=== PATIENT | female | born 1950 | race Caucasian/White ===

== ENCOUNTER 2021-03-29 09:06 | Inpatient (IN) | payer MEDICARE, SELFPAY ==
[2021-03-29] VITALS (18 sets, daily range): BP systolic 116–157; BP diastolic 56–95; PULSE 68–97; RESP 16–29; TEMP 36.5–38; O2SAT 90–100; BMI 32.4
--- NOTE | ~2021-03-29 | CT_ITS ---
EXAMINATION: CT abdomen pelvis w con INDICATION: Right lower abdominal pain TECHNIQUE: Computed tomographic images of the abdomen and pelvis were obtained after the administrati on of 100 cc of Omnipaque 350 intravenous contrast. The dose-length product (DLP) was 864.64 mGy-cm. Automated exposure control and iterative reconstruction technique were employed. COMPARISON: None available FINDINGS: Minimal dependent atelectasis is present in the lung bases. The heart size is normal. There are changes of right mastectomy. A small sliding hiatal hernia is noted. The liver, spleen, pancreas , gallbladder, and adrenal glands are normal. There is a 10 mm cyst of the right kidney. The left kid raymon is normal. There is calcified atherosclerosis of the aorta and many of the other arteries. The di lated appendix measures up to 13 mm. There is edematous stranding of the periappendiceal fat. No ther e appears to be interruption of the appendiceal wall at the base of the appendix contiguous with a 2. 2 x 1.3 cm abscess.. Colonic diverticulosis is present without evidence of diverticulitis. No patholo gically enlarged abdominal or pelvic lymph nodes are identified. There is no free intraperitoneal gas or evidence of bowel obstruction. There is thickening of the endometrial complex. IMPRESSION: 1. Acute appendicitis with likely perforation and small periappendiceal abscess near the base. These findings were discussed with Dr. Katy De Santiago MD in the Emergency Department at 1153 hours on . 2. Thickening of the endometrial complex. Recommend follow-up with nonemergent ultrasound. Reviewed, dictated and finalized at location A. IMPRESSION: 1. Acute appendicitis with likely perforation and small periappendiceal abscess near the base. These findings were discussed with Dr. Katy De Santiago MD in the Emergency Department at 1153 hours on 03/29/2021. 2. Thickening of the endometrial complex. Recommend follow-up with nonemergent ultrasound.
[2021-03-29 09:52] LABS: Basophils Percent Auto 0.3 % (0.2-1.2); Eosinophils Percent Auto 0.2 % (0-4.4); Hematocrit 39.1 % (37.0-47.0); Hemoglobin 13.4 g/dL (12.0-15.0); Immature Granulocyte Absolute 0.06 K/mm3 (0.00-0.031); Immature Granulocyte Percent A 0.6 % (0-0.5); Lymphocytes Absolute Auto 0.42 K/mm3 (0.9-3.2); Lymphocytes Percent Auto 4.2 % (18.3-44.2); Mean Corpuscular HGB Conc 34.3 g/dl (32-36); Mean Corpuscular Hemoglobin 29.3 pg (26-34); Mean Corpuscular Volume 85.4 fl (80-100); Mean Platelet Volume 8.6 fl (7.4-10.4); Monocytes Absolute Auto 0.5 K/mm3 (0.1-0.6); Monocytes Percent Auto 5.4 % (2.6-8.5); Neutrophils Percent Auto 89.3 % (45.5-73.1); Platelet Count Result 281 k/mm3 (150-375); Red Blood Count 4.58 M/mm3 (4.2-5.4); Red Cell Distribution Width 15.2 % (11.5-14.5); White Blood Count 10.1 K/mm3 (4.5-10.0)
[2021-03-29 09:55] LABS: Add Urine Microscopic? YES; Appearance Urine Cloudy (Clear); Bacteria Urine 4+ /hpf; Bilirubin Urine Negative (Negative); Blood Urine 1+ (Negative); Color Urine Yellow (Yellow); Glucose Urine UA Negative (Negative); Ketones Urine Negative (Negative); Leukocyte Esterase Ur Negative LEU/UL (Negative); Mucus Urine Rare /lpf; Nitrate Urine Negative (Negative); Protein Urine Negative (Negative); Specific Grav Ur 1.015 (1.001-1.035); Squamous Epithelial Cell Urine Many /hpf (Few); Urobilinogen Urine Negative mg/dL (<2.0)
--- NOTE | 2021-03-29 10:18 | ED.ABDPAIN ---
HPI - Abdominal Pain General Chief Complaint: Abdominal Pain Stated Complaint: abd pain Time Seen by Provider: 03/29/21 09:27 Source: patient and RN notes reviewed Mode of arrival: ambulatory Limitations: no limitations History of Present Illness HPI narrative: This is a 70 year old female who presents for evaluation of right lower abdominal pain. She states she developed intermittent right lower abdominal pain on Wednesday. Her pain is present with movement. She denies nausea, vomiting or diarrhea. She does reports fever for 2 days. Today she had fever 101 F . She denies taking any medication for pain or fever today. She reports increased urinary frequency but she denies dysuria or hematuria. She also states her pain goes her pain occasionally . She denies having pain currently. Related Data Allergies Allergy/AdvReac Type Severity Reaction Status Date / Time lovastatin AdvReac Mild muscle Verified 03/29/21 09:24 aches Review of Systems Review of Systems: All systems reviewed & are unremarkable except as noted in HPI and below Constitutional: Constitutional: Reports chills and Reports fever(s) Gastrointestinal: Gastrointestinal: Reports abdominal pain, Denies diarrhea, Reports nausea and Denies vomiting Genitourinary: Genitourinary: Denies hematuria, Denies dysuria and Denies flank pain Musculoskeletal: Musculoskeletal: Reports back pain PMFSH Past Medical History Medical History Essential (primary) hypertension Hyperlipidemia Osteopenia Prediabetes Surgical History Surgical History H/O mastectomy Family History Family History Father Hypertension Mother Hypertension Sibling Hypertension Social History Social History (Updated 03/29/21 @ 12:46 by Frank Suarez MD) Smoking packs per day: 1 Smoking cigarettes per day: 20.0 Years smoked: 50 Smoking pack-years: 50.00 Smoking status: Current every day smoker Tobacco type: cigarettes Alcohol intake: current Exam Const: General: no acute distress and alert Orientation/consciousness: patient oriented x3 Eyes: EOM: EOMs intact bilaterally Resp: Effort & Inspection: normal respiratory effort and no retractions Auscultation: clear to auscultation bilaterally Cardio: Rate: regular rate Rhythm: regular rhythm Heart sounds: no murmurs GI: GI Palp: Yes Soft to palpation, Yes Tenderness to palpation present (GI) (RLQ) and No Guarding due to palpation present (GI) Auscultation: normal bowel sounds Back/Spine/Pelvis: Back: no CVA tenderness Skin: General skin exam: normal color Rashes: no rashes Neuro: General: patient oriented x3, moves all extremities and CN's II-XI intact bilaterally Course Reevaluation(s) Reevaluation #1: I have discussed with patient lab abnormality and CT findings of acute appendicitis. She will be given IV antibiotics. she is awaiting evaluation by Dr. Suarez Date: 03/29/21 Time: 12:17 Consultations Consultation #1: Dr. Suarez states he will be over to evaluate patient for acute appendicitis with likely perforation. Date: 03/29/21 Time: 12:18 Vital Signs Vital signs: Vital Signs Temperature 100.4 F H 03/29/21 09:13 Pulse Rate 97 03/29/21 09:13 Respiratory Rate 19 03/29/21 09:13 Blood Pressure 150/80 H 03/29/21 09:13 Pulse Oximetry 99 03/29/21 09:13 Temperature 98.0 F 03/29/21 14:41 Pulse Rate 68 03/29/21 15:55 Respiratory Rate 20 03/29/21 15:55 Blood Pressure 137/70 03/29/21 15:55 Pulse Oximetry 97 03/29/21 17:23 MDM - Abdominal Pain Lab Data Attestation: I reviewed the patient's lab results. Result diagrams: 03/29/21 09:30 03/29/21 10:01 Labs: Lab Results 03/29/21 03/29/21 03/29/21 Range/Units 09:30 09:36 10:01 WBC 10.1 H (4.5-10.0) K/mm3 RBC
[2021-03-29 10:21] LABS: Alanine Aminotransferase 29 U/L (4-35); Albumin Level 4.2 g/dL (3.5-5.1); Alkaline Phosphatase 65 U/L (38-126); Anion Gap 11 mmol/L (8-16); Aspartate Amino Transferase 48 U/L (14-36); Bilirubin,Total 0.7 mg/dL (0.2-1.3); Blood Urea Nitrogen 10 mg/dL (7-17); Calcium 9.6 mg/dL (8.4-10.2); Carbon Dioxide 22 mmol/L (22-30); Chloride 96 mmol/L (98-107); Estimated CRCL calculation 75 ml/min; Estimated Glomerular Filt Rate > 60; Glucose 134 mg/dL (65-110); Lipase 72 U/L (23-300); Potassium 2.8 mmol/L (3.4-5.0); Sodium 129 mmol/L (137-145)
[2021-03-29] MEDS: LACTATED RINGERS 1,000 ML 999 ML IV CONT (10:25)
--- NOTE | 2021-03-29 12:36 | HP_ITS ---
This report was moved to the correct visit, [id number] on 03/31/21. Original report was signed by Frank Galeana MD on 03/29/21 1252. H&P: HPI History of Present Illness Date/Time: 03/29/21 12:36 Chief Complaint: right lower quadrant abdominal pain Narrative: the patient is a 70-year-old woman who 4 days ago started noticing right lower quadrant abdominal pain. The pain was persistent and she particularly noticed it would wake her up sometimes at night. Then 2 days ago she started having some fevers. Her highest temperature at home was yesterday at 101.8. As her pain and fevers persisted, she came to the emergency room this morning. She was noted to have tenderness with guarding in the right lower quadrant. Her white blood cell count was slightly elevated at 10,100. CT scan of the abdomen and pelvis was done and showed acute appendicitis very possibly ruptured with small abscess near the base of the appendix. Patient was seen in the emergency room. I concur with the diagnosis. After options were discussed, patient has decided to proceed with laparoscopic appendectomy and is taken to the operating room at this time for this purpose. She has had no previous abdominal surgery. She is a smoker and has smoked for nearly 50 years about 1 pack per day. Review of Systems Review of Systems: All systems reviewed & are unremarkable except as noted in HPI and below Constitutional: Constitutional: Reports as per HPI, Reports fever(s), Denies headache(s), Reports lethargy and Reports night sweats Cardiovascular: Cardiovascular: Denies chest pain and Denies dyspnea Respiratory: Respiratory: Denies cough and Denies dyspnea Gastrointestinal: Gastrointestinal: Reports abdominal pain, Denies heartburn and Denies nausea Neurologic: Denies confusion and Denies headache(s) FOR[facility]LY [facility], [facility] Past Medical History Medical History Essential (primary) hypertension Hyperlipidemia Osteopenia Prediabetes Surgical History Surgical History H/O mastectomy Family History Family History Father Hypertension Mother Hypertension Sibling Hypertension Social History Social History (Updated 03/29/21 @ 12:46 by Frank Galeana MD) Smoking packs per day: 1 Smoking cigarettes per day: 20.0 Years smoked: 50 Smoking pack-years: 50.00 Smoking status: Current every day smoker Tobacco type: cigarettes Alcohol intake: current Meds Home Medications and Allergies Home Medications Medication Instructions Recorded Confirmed Type lisinopril 20 2 tablet PO DAILY #180 tablet 11/25/20 03/29/21 Rx mg-hydrochlorothiazide 25 mg tablet rosuvastatin 20 mg tablet 20 mg PO DAILY #90 tablet 03/10/21 03/29/21 Rx Allergies Allergy/AdvReac Type Severity Reaction Status Date / Time lovastatin AdvReac Mild muscle Verified 03/29/21 09:24 aches Exam Const: General: cooperative, no acute distress, well developed, alert, awake, tired appearing and uncomfortable; No confusion Nutritional Appearance: obese Orientation/consciousness: patient oriented x3 and No confusion Limitations: no limitations HENMT: Head: normocephalic, atraumatic, no contusions and no scalp lesions Ears: external ears normal General nose exam: Normal external nose present Face and sinus: face symmetric and dry mucous membranes Mouth: Yes Normal oral and palatal mucosa present and Yes tongue normal Throat: posterior oropharynx normal Eyes: Conjunctivae: c
--- NOTE | 2021-03-29 12:44 | WPDANESEPP ---
Anes - Eval Pre Procedure Procedure: laparoscopic appendectomy Date/Time: 03/29/21 12:44 Surgeon: caridad Preop Diagnosis: appendicitis Pre Op Diagnosis: abd pain Patient Data Age: 70 Gender: F Height: 1.7 m Weight: 90 kg Last Vital Signs Temp 38.0 C H 03/29/21 09:13 Pulse 85 03/29/21 12:17 Resp 20 03/29/21 12:17 BP 157/95 H 03/29/21 12:17 Pulse Ox 98 03/29/21 12:17 Allergies Allergy/AdvReac Type Severity Reaction Status Date / Time lovastatin AdvReac Mild muscle Verified 03/29/21 09:24 aches Home Medications Medication Instructions Recorded Confirmed Type lisinopril 20 2 tablet PO DAILY #180 tablet 11/25/20 03/29/21 Rx mg-hydrochlorothiazide 25 mg tablet rosuvastatin 20 mg tablet 20 mg PO DAILY #90 tablet 03/10/21 03/29/21 Rx Laboratory Tests 03/29/21 03/29/21 03/29/21 09:30 09:36 10:01 WBC 10.1 K/mm3 H K/mm3 (4.5-10.0) RBC 4.58 M/mm3 M/mm3 (4.2-5.4) Hgb 13.4 g/dL g/dL (12.0-15.0) Hct 39.1 % % (37.0-47.0) MCV 85.4 fl fl (80-100) MCH 29.3 pg pg (26-34) MCHC 34.3 g/dl g/dl (32-36) RDW 15.2 % H % (11.5-14.5) Plt Count 281 k/mm3 k/mm3 (150-375) MPV 8.6 fl fl (7.4-10.4) Immature Gran % (Auto) 0.6 % H % (0-0.5) Neut % (Auto) 89.3 % H % (45.5-73.1) Lymph % (Auto) 4.2 % L % (18.3-44.2) [place] % (Auto) 5.4 % % (2.6-8.5) Eos % (Auto) 0.2 % % (0-4.4) Baso % (Auto) 0.3 % % (0.2-1.2) Lymph # (Auto) 0.42 K/mm3 L K/mm3 (0.9-3.2) [place] # (Auto) 0.5 K/mm3 K/mm3 (0.1-0.6) Eos # (Auto) 0.0 K/mm3 K/mm3 (0-0.3) Baso # (Auto) 0.0 K/mm3 K/mm3 (0.0-0.1) Abs Immat Gran (auto) 0.06 K/mm3 H K/mm3 (0.00-0.031) Absolute Neuts (auto) 9.0 K/mm3 H K/mm3 (1.3-6.7) Absolute Nucleated RBC 0.0 K/mm3 K/mm3 (0.0-0.012) Nucleated RBC % 0.0 % % (0.0-0.2) Sodium 129 mmol/L L mmol/L (137-145) Potassium 2.8 mmol/L L* mmol/L (3.4-5.0) Chloride 96 mmol/L L mmol/L (98-107) Carbon Dioxide 22 mmol/L mmol/L (22-30) Anion Gap 11 mmol/L mmol/L (8-16) BUN 10 mg/dL mg/dL (7-17) Creatinine 0.70 mg/dL mg/dL (0.7-1.0) Estim Creat Clear Calc 75 ml/min ml/min Estimated GFR > 60 (59 - ) Glucose 134 mg/dL H mg/dL (65-110) Calcium 9.6 mg/dL mg/dL (8.4-10.2) Total Bilirubin 0.7 mg/dL mg/dL (0.2-1.3) AST 48 U/L H U/L (14-36) ALT 29 U/L U/L (4-35) Alkaline Phosphatase 65 U/L U/L (38-126) Total Protein 7.0 g/dL g/dL (6.3-8.2) Albumin 4.2 g/dL g/dL (3.5-5.1) Lipase 72 U/L U/L (23-300) Urine Color Yellow (Yellow) Urine Appearance Cloudy H (Clear) Urine pH 7.0 (5.0-9.0) Ur Specific [place] 1.015 (1.001-1.035) Urine Protein Negative mg/dL mg/dL (Negative) Urine Glucose (UA) Negative mg/dL mg/dL (Negative) Urine Ketones Negative mg/dL mg/dL (Negative) Ur Blood (Man) 1+ H (Negative) Urine Nitrate Negative (Negative) Urine Bilirubin Negative (Negative) Urine Urobilinogen Negative mg/dL mg/dL (<2.0) Leukocyte Esterase Rfl Negative KINGSLEY/UL KINGSLEY/UL (Negative) Urine RBC 3-5 /hpf H /hpf (0-2) Urine WBC 4-6 /hpf H /hpf Ur Squamous Epith Cells Many /hpf H /hpf (Few) Urine Bacteria 4+ /hpf H /hpf Urine Mucus Rare /lpf /lpf Patient hx anesthesia problems: none Family hx anesthesia problems: none PMFSH Past Medical History Medical History Essential (primary) hypertension Hyperlipidemia Osteopenia Prediabete
--- NOTE | 2021-03-29 13:26 | HP_ITS ---
This report was moved to the correct visit, [id number] on 03/31/21. Original report was signed by Frank Galeana on 03/29/211326. History and Physical Update Update Date/Time: 03/29/21 13:26 History and Physical has been reviewed, including an updated exam of the patient. There are NO changes in the patient's condition. Risks, benefits, and alternatives have been discussed and questions answered. Patient agrees to proceed with procedure. This dictation may have been done utilizing a voice recognition system. Attempts have been made to correct errors. However, there may be uncorrected grammatical, spelling, and recognition errors present. Report Initialized date/time: Frank Galeana MD 03/29/211326 Electronically signed by: Frank Galeana MD 03/29/211326 [facility]
[2021-03-29] MEDS: BUPIVACAINE/EPINEPHRINE 0.5% 30 ML VIAL INFILTRATE (13:59)
[2021-03-29] MEDS: LACTATED RINGERS 1,000 ML 30 ML IV CONT (14:41)
--- NOTE | 2021-03-29 14:55 | PN_ITS ---
This report was moved to the correct visit, [id number] on 03/31/21. Original report was signed by Jose Limon MD on 03/29/21 3613. Anes - Eval Final PreProcedure Day of Procedure 03/29/21 14:55 Patient weight: obese Heart: regular rate and rhythm Lungs: clear to auscultation and normal air movement Airway: Mallampati scale class II Neurological: alert and oriented Last oral intake: >/= 8 hours ASA classification: III Emergent: no Anesthetic plan: proceed Anesthesia type and monitoring: general ETT Informed Consent: The patient's anesthetic plan and its attendant risks and benefits were discussed with the patient/family/POA. Questions were solicited and answers provided to the satisfaction of the patient/family/POA. This dictation may have been done utilizing a voice recognition system. Attempts have been made to correct errors. However, there may be uncorrected grammatical, spelling, and recognition errors present. Report Initialized date/time: Jose Limon MD 03/29/211454 Electronically signed by: Jose Limon MD 03/29/211454 [facility]
[2021-03-29 15:16] LABS: Glucose Point of Care 225 mg/dl (65-105)
--- NOTE | 2021-03-29 15:26 | OP_ITS ---
This report was moved to the correct visit, [id number] on 03/31/21. Original report was signed by Frank Galeana MD on 03/29/21 1526. Procedure Note - Detailed Date of Procedure 03/29/21 Pre-op Diagnosis ruptured appendicitis with abscess Post-op Diagnosis same Procedure Performed laparoscopic appendectomy for ruptured appendicitis Surgeon Frank Galeana MD [employer] Technician Joelle MARIE Anesthesia general and local ( 0.5% Marcaine with epinephrine) Indications patient has a 4 day history of right lower quadrant pain. She developed fever the last 2 days. She came to the emergency room. Evaluation there showed evidence of appendicitis. CT showed not only appendicitis but a small abscess as well. She is taken to surgery now for laparoscopic appendectomy. Findings Showed a ruptured appendix with rupture near the base of the appendix and an abscess on the right lateral sidewall. No other significant findings were noted. Description of Procedure Patient was taken to surgery and induced into general anesthesia. The abdomen is prepped and draped. Trocars were placed in the usual fashion using 0.5% Marcaine with epinephrine and applied Medical optical trocars. A 5 mm camera was used. Patient was placed in Trendelenburg with the right side elevated. A few inflammatory adhesions of small bowel and omentum were taken down and then the cecum and appendix were identified. I attempted to mobilize the appendix but it was on the right lateral side of the cecum. I mobilized it to some degree in the abscess drained. I suctioned away the purulent material and irrigated the area to clean it. I then further tried to mobilize the appendix but was not able to see well enough. A right upper quadrant 5 mm port was then placed. The camera was switched to this position. This greatly assisted in the visualization. From there I was then able to see the rupture in the appendix and mobilize the appendix from the surrounding tissues and the abscess wall. Eventually the appendix was elevated. Cautery was used for hemostasis. I dissected through the mesoappendix and skeletonized the base of the appendix. Vicryl endoloop was used to ligate the appendix at its base. I then amputated the appendix just above the ligature. The mucosa of the appendiceal stump was cauterized. The appendix was immediately placed in an Endo-Catch bag. It was retrieved through the 10 11 left lower quadrant trocar site. The left lower quadrant trocar was replaced. We then irrigated and reviewed the right lower quadrant repeatedly. Some additional cautery on raw surface area was carried out to achieve good hemostasis. After irrigating and suctioning area several times, all looked good with no evidence of bleeding or other problems. I placed a 19 [place] Brice drain through the right upper quadrant trocar site and down into the area of the ruptured appendix an abscess. It was sutured to the skin with 2 0 silk. We then evacuated CO2 and removed the trocar sleeves. Skin wounds were closed with subcuticular 4 O Monocryl skin suture. The wounds were dressed with Exofin surgical adhesive. The PAVITHRA drain was placed to bulb suction. The patient was awakened and taken to recovery in good condition. Sponge and needle counts were correct x2. Estimated Blood Loss 10 Drains Yes ( PAVITHRA drain right lower quadrant) Packing No Pathology yes ( ruptured appendix) Complications None Condition stable Disposition PACU This dictation may have been done utilizing a voice recognition system. Attempts have been made to correct errors. However, there may be uncorrected grammatical, spelling, and recognition errors present. Report Initialized date/time: Frank Galeana MD 03/29/21 / 1526 Electronically signed by: Frank Galeana MD 03/29/21 1526 [facility]
[2021-03-29] MEDS: HYDROcodone/acetaminophen (*CRX) 5-325 MG TABLET 1 TAB PO (17:57)
--- NOTE | 2021-03-29 18:16 | ADMGEN ---
This patient, Rosa Melo, was admitted to Medical Room 255-01. Patient/family oriented to hospital policies and general routines including ID bracelet, bed and alarms, visiting hours, pain management, procedures, bathroom and other care routines, personal items, smoking policy, room service/diet, and visiting hours. Information on how to activate the Rapid Response Team has been discussed. Patient/Family are encouraged to report perceived risks to care and to ask questions if they do not understand what they are told or what they should do.
[2021-03-29] MEDS: ENOXAPARIN 30 MG/0.3 ML SYRINGE SUB-Q (21:21)
[2021-03-29] MEDS: FAMOTIDINE 20 MG/2 ML VIAL IV PUSH (21:21)
[2021-03-29] MEDS: HYDROcodone/acetaminophen (*CRX) 7.5-325 MG TABLET 1 TAB PO (21:25)
[2021-03-30 01:59] VITALS: BP 110/53; PULSE 73; RESP 16; TEMP 36.1; O2SAT 97
[2021-03-30 05:52] LABS: Basophils Percent Auto 0.3 % (0.2-1.2); Eosinophils Percent Auto 0.1 % (0-4.4); Hematocrit 34.3 % (37.0-47.0); Hemoglobin 12.1 g/dL (12.0-15.0); Immature Granulocyte Absolute 0.08 K/mm3 (0.00-0.031); Immature Granulocyte Percent A 0.7 % (0-0.5); Lymphocytes Absolute Auto 0.53 K/mm3 (0.9-3.2); Lymphocytes Percent Auto 4.8 % (18.3-44.2); Mean Corpuscular HGB Conc 35.3 g/dl (32-36); Mean Corpuscular Hemoglobin 29.5 pg (26-34); Mean Corpuscular Volume 83.7 fl (80-100); Mean Platelet Volume 8.7 fl (7.4-10.4); Monocytes Absolute Auto 0.7 K/mm3 (0.1-0.6); Monocytes Percent Auto 6.3 % (2.6-8.5); Neutrophils Absolute Auto 9.7 K/mm3 (1.3-6.7); Neutrophils Percent Auto 87.8 % (45.5-73.1); Platelet Count Result 259 k/mm3 (150-375); Red Cell Distribution Width 14.6 % (11.5-14.5); White Blood Count 11.1 K/mm3 (4.5-10.0)
[2021-03-30 06:00] VITALS: BP 129/74; PULSE 79; RESP 16; TEMP 36.2; O2SAT 93
[2021-03-30 06:09] LABS: Anion Gap 9 mmol/L (8-16); Blood Urea Nitrogen 10 mg/dL (7-17); Calcium 9.2 mg/dL (8.4-10.2); Carbon Dioxide 24 mmol/L (22-30); Chloride 95 mmol/L (98-107); Estimated CRCL calculation 77 ml/min; Estimated Glomerular Filt Rate > 60; Glucose 124 mg/dL (65-110); Potassium 3.2 mmol/L (3.4-5.0); Sodium 128 mmol/L (137-145)
[2021-03-30] MEDS: HYDROcodone/acetaminophen (*CRX) 7.5-325 MG TABLET 1 TAB PO ×3 (08:27→20:33)
[2021-03-30] MEDS: KCL 40 MEQ/0.9% SOD CHL 1,000 ML 80 ML IV CONT (08:28)
[2021-03-30] MEDS: ENOXAPARIN 40 MG/0.4 ML SYRINGE SUB-Q (08:29)
[2021-03-30] MEDS: FAMOTIDINE 20 MG/2 ML VIAL IV PUSH (08:29)
[2021-03-30] MEDS: POTASSIUM CHLORIDE 20 MEQ TABLET.ER PO (08:29)
--- NOTE | 2021-03-30 09:52 | PM.PNGS ---
Progress Note: A&P Assessment and Plan (1) Acute appendicitis with appendiceal abscess: Code(s): K35.33 - Acute appendicitis with perforation and localized peritonitis, with abscess Status: Acute Assessment and Plan: healing well. Normal bowel sounds and mild appropriate postop pain. Increase ambulation and advance diet today. Continue IV Zosyn. (2) Acute hypokalemia: Code(s): E87.6 - Hypokalemia Status: Acute Assessment and Plan: Probably due to hydrochlorothiazide she takes chronically as well as present illness. Hyponatremia likely due to same. Will stop IV fluids. Increase potassium supplement to 40 mEq twice a day. Continue to monitor. (3) Smoker: Code(s): F17.200 - Nicotine dependence, unspecified, uncomplicated Status: Chronic Assessment and Plan: Start nicotine patch. Subjective Subjective Date/Time Seen: 03/30/21 09:52 Post Op day: 1 Patient reports: feels better, pain is less, flatus, no bowel movement and afebrile Exam GI: Inspection: non-distended, incision ( all healing well) and other ( serosanguineous fluid per PAVITHRA drain) GI Palp: Yes Soft to palpation and Yes Tenderness to palpation present (GI) ( right lower quadrant) Auscultation: normal bowel sounds Objective Data Vital Signs Vital Signs: Vital Signs - 24 hr 03/29/21 10:08 03/29/21 12:17 03/29/21 13:10 Temperature Pulse Rate 87 85 87 Respiratory Rate 20 20 20 Blood Pressure 128/74 157/95 H 154/87 H Pulse Oximetry 93 98 96 03/29/21 14:41 03/29/21 14:55 03/29/21 15:10 Temperature 36.7 C Pulse Rate 74 76 71 Respiratory Rate 29 H 17 20 Blood Pressure 116/61 134/76 134/71 Pulse Oximetry 96 100 92 03/29/21 15:25 03/29/21 15:40 03/29/21 15:55 Temperature Pulse Rate 70 69 68 Respiratory Rate 21 H 20 20 Blood Pressure 131/68 135/69 137/70 Pulse Oximetry 92 90 94 03/29/21 17:00 03/29/21 17:15 03/29/21 17:23 Temperature 37.4 C 37.3 C Pulse Rate 82 85 Respiratory Rate 16 17 Blood Pressure 135/72 136/65 Pulse Oximetry 97 98 97 03/29/21 17:45 03/29/21 18:30 03/29/21 18:45 Temperature 37.2 C 37.1 C Pulse Rate 89 84 Respiratory Rate 18 17 Blood Pressure 137/60 142/56 H Pulse Oximetry 97 97 96 03/29/21 20:00 03/29/21 23:30 03/30/21 01:59 Temperature 36.5 C 36.1 C L Pulse Rate 83 73 Respiratory Rate 16 16 Blood Pressure 147/71 H 110/53 L Pulse Oximetry 96 96 97 03/30/21 06:00 Temperature 36.2 C L Pulse Rate 79 Respiratory Rate 16 Blood Pressure 129/74 Pulse Oximetry 93 Intake/Output Intake/Output: Intake & Output 03/27/21 03/28/21 03/29/21 03/30/21 23:59 23:59 23:59 23:59 Intake Total 1600 400 Output Total 105 40 Balance 1495 360 Meds/Results Medications: Active Medications Generic Name Dose Route Start Last Admin Trade Name Freq PRN Reason Stop Dose Admin Acetaminophen 500 mg 03/29/21 16:07 Acetaminophen 500 Mg Tablet PO Q6H PRN Mild Pain (1-3) or Fever Hydrocodone Bitart/Acetaminophen 1 tab 03/29/21 16:07 03/29/21 17:57 Hydrocodone/Acetaminophen (*Crx) 5-325 Mg Tablet PO 1 tab Q4H PRN Administration Pain Rated 4-6 Hydrocodone Bitart/Acetaminophen 1 tab 03/29/21 16:07 03/30/21 08:27 Hydrocodone/Acetaminophen (*Crx) 7.5-325 Mg Tablet PO 1 tab Q4H PRN Administration Pain Rated 7-10 Alvimopan 12 mg 03/30/21 21:00 Alvimopan 12 Mg Capsule PO 04/06/21 21:01 Q12HR YUMI Enoxaparin Sodium 40 mg 03/30/21 09:00 03/30/21 08:29 Enoxaparin 40 Mg/0.4 Ml Syringe SUB-Q 40 mg DAILY YUMI Administration Famotidine 20 mg 03/30/21 21:00 Famotidine 20 Mg Tablet PO Q12HR YUMI Piperacillin/Tazobactam/Dextrose 3.375 gm in 50 mls @ 100 mls/hr 03/29/21 18:00 03/30/21 06:20 Zosyn 3.375 Gm/D5w 50ml Pm IVPB Infused Q6H YUMI Infusion Morphine Sulfate 1 mg 03/29/21 16:07 Morphine Sulfate (*Crx) 2 Mg/Ml Inj IV PUSH Q2H PRN Pain
--- NOTE | 2021-03-30 12:31 | P.PNAN_ITS ---
Anes - Prog Note Post-Op Date/Time: 03/30/21 12:31 Cardiovascular status: normal Respiratory status: normal Airway patency: baseline Mental status: baseline Post-Op hydration status: normal Vital Signs: Last Vital Signs Temp 36.2 C L 03/30/21 06:00 Pulse 79 03/30/21 06:00 Resp 16 03/30/21 06:00 BP 129/74 03/30/21 06:00 Pulse Ox 93 03/30/21 06:00 Pain Score (VAS): 0 I/O: Intake & Output 03/29/21 03/30/21 03/30/21 23:59 07:59 15:59 Intake Total 150 400 Output Total 55 40 Balance 95 360 Laboratory Tests 03/30/21 05:30 03/30/21 05:30 03/29/21 03/30/21 03/30/21 15:13 05:30 05:30 WBC 11.1 H RBC 4.10 L Hgb 12.1 Hct 34.3 L MCV 83.7 MCH 29.5 MCHC 35.3 RDW 14.6 H Plt Count 259 MPV 8.7 Immature Gran % (Auto) 0.7 H Neut % (Auto) 87.8 H Lymph % (Auto) 4.8 L [place] % (Auto) 6.3 Eos % (Auto) 0.1 Baso % (Auto) 0.3 Lymph # (Auto) 0.53 L [place] # (Auto) 0.7 H Eos # (Auto) 0.0 Baso # (Auto) 0.0 Abs Immat Gran (auto) 0.08 H Absolute Neuts (auto) 9.7 H Absolute Nucleated RBC 0.0 Nucleated RBC % 0.0 Sodium 128 L Potassium 3.2 L Chloride 95 L Carbon Dioxide 24 Anion Gap 9 BUN 10 Creatinine 0.70 Estim Creat Clear Calc 77 Estimated GFR > 60 Glucose 124 H POC Capillary Glucose 225 H Calcium 9.2 Post-procedural complaints: none Patient Feedback: Patient satisfied with anesthetic care.
[2021-03-30] MEDS: EZETIMIBE 10 MG TABLET PO (12:53)
[2021-03-30] MEDS: lisinopriL 20 MG TABLET PO ×2 (12:53→14:59)
[2021-03-30 14:00] VITALS: BP 142/73; PULSE 76; RESP 24; TEMP 35.9; O2SAT 94
[2021-03-30] MEDS: POTASSIUM CHLORIDE 20 MEQ TABLET.ER 40 MEQ PO (17:30)
[2021-03-30] MEDS: ALVIMOPAN 12 MG CAPSULE PO (20:36)
[2021-03-30] MEDS: FAMOTIDINE 20 MG TABLET PO (20:36)
[2021-03-30 22:00] VITALS: BP 144/83; PULSE 78; RESP 16; TEMP 36.5; O2SAT 94
[2021-03-31 05:42] VITALS: BP 149/77; PULSE 57; RESP 16; TEMP 36.4; O2SAT 94
[2021-03-31 05:51] LABS: Hematocrit 36.8 % (37.0-47.0); Hemoglobin 12.6 g/dL (12.0-15.0); Mean Corpuscular HGB Conc 34.2 g/dl (32-36); Mean Corpuscular Volume 84.6 fl (80-100); Mean Platelet Volume 8.8 fl (7.4-10.4); Platelet Count Result 316 k/mm3 (150-375); Red Blood Count 4.35 M/mm3 (4.2-5.4); White Blood Count 7.6 K/mm3 (4.5-10.0)
[2021-03-31] MEDS: POTASSIUM CHLORIDE 20 MEQ TABLET.ER 40 MEQ PO (08:04)
[2021-03-31] MEDS: ENOXAPARIN 40 MG/0.4 ML SYRINGE SUB-Q (08:05)
[2021-03-31] MEDS: ALVIMOPAN 12 MG CAPSULE PO (08:05)
[2021-03-31] MEDS: lisinopriL 20 MG TABLET 40 MG PO (08:06)
[2021-03-31] MEDS: FAMOTIDINE 20 MG TABLET PO (08:06)
[2021-03-31] MEDS: EZETIMIBE 10 MG TABLET PO (08:06)
[2021-03-31] MEDS: NICOTINE (*PBKC) 14 MG PATCH 1 PATCH TRANSDERM (08:07)
[2021-03-31] MEDS: HYDROcodone/acetaminophen (*CRX) 5-325 MG TABLET 1 TAB PO (08:16)
--- NOTE | 2021-03-31 08:32 | PM.DS ---
DS: Admitting Diagnosis Admitting Diagnosis Admitting Diagnosis: Ruptured appendicitis with abscess smoker essential hypertension hyperlipidemia DS: Discharge Diagnosis Discharge Diagnosis (1) Acute appendicitis with appendiceal abscess: Code(s): K35.33 - Acute appendicitis with perforation and localized peritonitis, with abscess Status: Acute (2) Smoker: Code(s): F17.200 - Nicotine dependence, unspecified, uncomplicated Status: Chronic (3) Essential (primary) hypertension: Code(s): I10 - Essential (primary) hypertension Status: Chronic (4) Hyperlipidemia: Qualifiers: Hyperlipidemia type: unspecified Qualified Code(s): E78.5 - Hyperlipidemia, unspecified Code(s): E78.5 - Hyperlipidemia, unspecified Status: Chronic DS: Summary Hospital Course Hospital Course: patient is a 70-year-old woman who presented to the emergency room on the day of admission, 03/29/2021 with a 4 day history of right lower quadrant abdominal pain as well as fever. Evaluation there showed tenderness with peritoneal signs in the right lower quadrant. CT scan showed appendicitis with evidence of an abscess at the base of the appendix. She was admitted by Dr. mclean and taken to surgery on 03/29/2021. Laparoscopic appendectomy was performed. patient was noted at surgery to have ruptured appendicitis with the rupture near the base of the appendix and a periappendiceal abscess. A Hussain-Fajardo drain was placed. The patient takes hydrochlorothiazide and was also noted to be hyponatremic and had a low potassium. Her potassium was supplemented and improved to 4.0 on the day of discharge. Her sodium remained low at about 128-129 throughout the admission but she was asymptomatic regarding this. She is afebrile on the day of discharge, taking only oral analgesics and feeling much better. She is discharged today in improved condition with her Hussain-Fajardo drain in place and on oral antibiotics. she will see Dr. mclean on 04/03/2021 for follow-up evaluation and possibly drain removal. She will see Dr. Kruse in 1 week regarding her low potassium and low sodium. Status at Discharge Overall status at discharge: patient is progressing back to baseline Time Spent with Patient Time attestation: Total time spent providing and/or coordinating discharge services: DS: Data Data Completed and Pending Pending studies at discharge: Pending at discharge 03/29/21 14:06 Surgical [PTH] Routine Labs on day of discharge: Labs from last 24 hours 03/31/21 03/31/21 05:17 05:17 WBC 7.6 RBC 4.35 Hgb 12.6 Hct 36.8 L MCV 84.6 MCH 29.0 MCHC 34.2 RDW 15.0 H Plt Count 316 MPV 8.8 Sodium Pending Potassium 4.0 Chloride Pending Carbon Dioxide Pending Anion Gap Pending BUN Pending Creatinine Pending Estim Creat Clear Calc Pending Estimated GFR Pending Glucose Pending Calcium Pending Discharge Plan Discharge Attending physician on discharge: Frank Mclean Discharging Clinician: Frank Mclean Anticipated Discharge Date/Time: 03/31/21 08:37 Patient Disposition: Home, Self-Care Activity: may shower, no straining and as tolerated Diet: as tolerated and regular Wound Care Instructions: remove dressing to shower and change dressing daily Discharge Instructions: Ambulate 3-4 x per day and as tolerated. No lifting over 15-20lbs. May bathe or shower. Stairs are OK. May drive a car in 3 days. Remove any dressings before shower and replace after. Patient Instructions: Antibiotic Form Stand Alone Forms: General Discharge Information Follow-up/Referrals: Frank Mclean MD [Physician] - 04/03/21 ( Call Dr. perez office to make appointment for ) Tapan Kruse MD [Primary Care Provider] - 1 Week ( call for appointment) Discharge Medications: New hydrocodone-acetaminophen 5-325
[2021-03-31 08:43] LABS: Anion Gap 10 mmol/L (8-16); Blood Urea Nitrogen 11 mg/dL (7-17); Calcium 9.7 mg/dL (8.4-10.2); Carbon Dioxide 24 mmol/L (22-30); Chloride 99 mmol/L (98-107); Estimated CRCL calculation 61 ml/min; Estimated Glomerular Filt Rate > 60; Glucose 108 mg/dL (65-110); Sodium 133 mmol/L (137-145)
--- NOTE | 2021-04-07 13:05 | PHAR ---
SPOKE WITH NURSE ABOUT RENEWING ORDERS FOR MORPHINE 2 AND 4 MG
== END 2021-03-31 10:23 | disposition home or self-care (01) | DRG 339 ==
LOC: ANHED 12:47 → ANH2MED 03-31 07:53
PROVIDERS: Admitting Provider Surgery; Emergency Provider General Practice; PCP Family Medicine; Visit Provider Surgery
PROC: 0DTJ4ZZ Resection of Appendix, Percutaneous Endoscopic Approach (ICD-10-PCS; CPT 44970; principal; 2021-03-29 13:30)
DX: K35.33 Acute appendicitis with perforation, localized peritonitis, and gangrene, with abscess (principal); E87.1 Hypo-osmolality and hyponatremia; I10 Essential (primary) hypertension; E78.5 Hyperlipidemia, unspecified; M85.80 Other specified disorders of bone density and structure, unspecified site; E87.6 Hypokalemia; E66.9 Obesity, unspecified; Z68.32 Body mass index [BMI] 32.0-32.9, adult; F17.210 Nicotine dependence, cigarettes, uncomplicated
CPT/HCPCS: 36415; 74177; 80048; 80053; 81001; 82948; 83690; 85025; 85027; 88304; 96361; 96365; 96375; 99285; A9270; J0330; J1100; J1650; J1885; J2250; J2405; J2543; J2710; J3010; J3480; J7030; J7120; Q9967

== ENCOUNTER 2022-06-19 08:23 | Outpatient (CLI) | payer MEDICARE, SELFPAY ==
[2022-06-19 19:43] LABS: Alanine Aminotransferase 25 U/L (6-35); Albumin Level 4.4 g/dL (3.5-5.1); Alkaline Phosphatase 79 U/L (38-126); Anion Gap 12 mmol/L (8-16); Aspartate Amino Transferase 24 U/L (14-36); Bilirubin,Total 0.5 mg/dL (0.2-1.3); Blood Urea Nitrogen 16 mg/dL (7-17); Calcium 9.9 mg/dL (8.4-10.2); Carbon Dioxide 21 mmol/L (22-30); Chloride 105 mmol/L (98-107); Cholesterol 239 mg/dL (0-200); Estimated Glomerular Filt Rate > 60; Glucose 105 mg/dL (65-110); HDL Direct 40 mg/dL; Potassium 3.1 mmol/L (3.4-5.0); Sodium 138 mmol/L (137-145); Triglycerides 235 mg/dL (<150)
[2022-06-19 19:45] LABS: Basophils Absolute Auto 0.1 K/mm3 (0.0-0.1); Basophils Percent Auto 0.9 % (0.2-1.2); Eosinophils Absolute Auto 0.2 K/mm3 (0-0.3); Eosinophils Percent Auto 2.3 % (0-4.4); Hematocrit 40.9 % (37.0-47.0); Hemoglobin 13.9 g/dL (12.0-15.0); Immature Granulocyte Absolute 0.02 K/mm3 (0.00-0.031); Immature Granulocyte Percent A 0.2 % (0-0.5); Lymphocytes Absolute Auto 2.08 K/mm3 (0.9-3.2); Lymphocytes Percent Auto 21.7 % (18.3-44.2); Mean Corpuscular Hemoglobin 29.3 pg (26-34); Mean Corpuscular Volume 86.1 fl (80-100); Mean Platelet Volume 9.3 fl (7.4-10.4); Monocytes Absolute Auto 0.6 K/mm3 (0.1-0.6); Neutrophils Absolute Auto 6.6 K/mm3 (1.3-6.7); Neutrophils Percent Auto 68.9 % (45.5-73.1); Platelet Count Result 400 k/mm3 (150-375); Red Blood Count 4.75 M/mm3 (4.2-5.4); Red Cell Distribution Width 15.8 % (11.5-14.5); White Blood Count 9.6 K/mm3 (4.5-10.0)
[2022-06-19 19:54] LABS: LDL Cholesterol Direct 157 mg/dL
[2022-06-19 21:01] LABS: Hemoglobin A1C 6.4 % (<5.7)
== END 2022-06-19 08:24 | disposition home or self-care (01) ==
LOC: ANHGOSHLAB 08:26
PROVIDERS: PCP Family Medicine; Visit Provider Nurse Practitioner Family
DX: E78.5 Hyperlipidemia, unspecified (principal); R73.03 Prediabetes; E03.9 Hypothyroidism, unspecified; I10 Essential (primary) hypertension
CPT/HCPCS: 36415; 80053; 80061; 83036; 84443; 85025

== ENCOUNTER 2022-06-29 09:17 | Outpatient (CLI) | payer MEDICARE, SELFPAY ==
[2022-06-29 20:12] LABS: Anion Gap 17 mmol/L (8-16); Blood Urea Nitrogen 13 mg/dL (7-17); Calcium 10.1 mg/dL (8.4-10.2); Carbon Dioxide 20 mmol/L (22-30); Chloride 103 mmol/L (98-107); Estimated Glomerular Filt Rate > 60; Glucose 175 mg/dL (65-110); Sodium 140 mmol/L (137-145)
== END 2022-06-29 09:18 | disposition home or self-care (01) ==
LOC: ANHGOSHLAB 09:18
PROVIDERS: PCP Family Medicine; Visit Provider Nurse Practitioner Family
DX: E87.6 Hypokalemia (principal)
CPT/HCPCS: 36415; 80048

== ENCOUNTER 2022-07-27 10:28 | Outpatient (CLI) | payer MEDICARE, SELFPAY ==
[2022-07-27 19:18] LABS: Anion Gap 18 mmol/L (8-16); Blood Urea Nitrogen 15 mg/dL (7-17); Carbon Dioxide 21 mmol/L (22-30); Chloride 103 mmol/L (98-107); Estimated Glomerular Filt Rate 55; Glucose 125 mg/dL (65-110); Potassium 3.2 mmol/L (3.4-5.0); Sodium 142 mmol/L (137-145)
== END 2022-07-27 10:29 | disposition home or self-care (01) ==
PROVIDERS: PCP Family Medicine; Visit Provider Family Medicine
DX: E87.6 Hypokalemia (principal)
CPT/HCPCS: 36415; 80048

== ENCOUNTER 2022-08-10 09:31 | Outpatient (CLI) | payer MEDICARE, SELFPAY ==
[2022-08-10 20:06] LABS: Anion Gap 14 mmol/L (8-16); Blood Urea Nitrogen 13 mg/dL (7-17); Calcium 10.4 mg/dL (8.4-10.2); Carbon Dioxide 27 mmol/L (22-30); Chloride 101 mmol/L (98-107); Estimated Glomerular Filt Rate 55; Glucose 115 mg/dL (65-110); Potassium 4.4 mmol/L (3.4-5.0); Sodium 142 mmol/L (137-145)
== END 2022-08-10 09:32 | disposition home or self-care (01) ==
LOC: ANHGOSHLAB 09:33
PROVIDERS: PCP Family Medicine; Visit Provider Nurse Practitioner Family
DX: E87.6 Hypokalemia (principal)
CPT/HCPCS: 36415; 80048

== ENCOUNTER 2022-12-23 09:22 | Outpatient (CLI) | payer MEDICARE, SELFPAY ==
[2022-12-23 18:55] LABS: Basophils Absolute Auto 0.1 K/mm3 (0.0-0.1); Basophils Percent Auto 0.9 % (0.2-1.2); Eosinophils Absolute Auto 0.3 K/mm3 (0-0.3); Eosinophils Percent Auto 4.3 % (0-4.4); Hematocrit 42.5 % (37.0-47.0); Hemoglobin 14.3 g/dL (12.0-15.0); Immature Granulocyte Absolute 0.02 K/mm3 (0.00-0.031); Immature Granulocyte Percent A 0.3 % (0-0.5); Lymphocytes Absolute Auto 2.06 K/mm3 (0.9-3.2); Lymphocytes Percent Auto 27.7 % (18.3-44.2); Mean Corpuscular HGB Conc 33.6 g/dl (32-36); Mean Corpuscular Hemoglobin 29.4 pg (26-34); Mean Corpuscular Volume 87.4 fl (80-100); Monocytes Absolute Auto 0.5 K/mm3 (0.1-0.6); Monocytes Percent Auto 6.4 % (2.6-8.5); Neutrophils Absolute Auto 4.5 K/mm3 (1.3-6.7); Neutrophils Percent Auto 60.4 % (45.5-73.1); Platelet Count Result 376 k/mm3 (150-375); Red Blood Count 4.86 M/mm3 (4.2-5.4); Red Cell Distribution Width 15.9 % (11.5-14.5); White Blood Count 7.5 K/mm3 (4.5-10.0)
[2022-12-23 19:31] LABS: Alanine Aminotransferase 26 U/L (6-35); Albumin Level 4.6 g/dL (3.5-5.1); Alkaline Phosphatase 84 U/L (38-126); Anion Gap 8 mmol/L (8-16); Aspartate Amino Transferase 37 U/L (14-36); Bilirubin,Total 0.6 mg/dL (0.2-1.3); Blood Urea Nitrogen 14 mg/dL (7-17); Calcium 9.8 mg/dL (8.4-10.2); Carbon Dioxide 28 mmol/L (22-30); Chloride 104 mmol/L (98-107); Cholesterol 240 mg/dL (0-200); Estimated Glomerular Filt Rate > 60; Glucose 98 mg/dL (65-110); HDL Direct 38 mg/dL; Potassium 3.7 mmol/L (3.4-5.0); Sodium 140 mmol/L (137-145); Triglycerides 257 mg/dL (<150)
[2022-12-23 19:41] LABS: LDL Cholesterol Direct 155 mg/dL
[2022-12-23 20:10] LABS: Hemoglobin A1C 6.2 % (<5.7)
== END 2022-12-23 09:23 | disposition home or self-care (01) ==
LOC: ANHGOSHLAB 09:24
PROVIDERS: PCP Family Medicine; Visit Provider Nurse Practitioner Family
DX: R73.03 Prediabetes (principal); E78.5 Hyperlipidemia, unspecified; I10 Essential (primary) hypertension
CPT/HCPCS: 36415; 80053; 80061; 83036; 84443; 85025

== ENCOUNTER 2023-06-22 09:15 | Outpatient (CLI) | payer MEDICARE, SELFPAY ==
[2023-06-22 18:48] LABS: Alanine Aminotransferase 25 U/L (6-35); Albumin Level 4.2 g/dL (3.5-5.1); Alkaline Phosphatase 65 U/L (38-126); Anion Gap 7 mmol/L (8-16); Aspartate Amino Transferase 27 U/L (14-36); Bilirubin,Total 0.6 mg/dL (0.2-1.3); Blood Urea Nitrogen 11 mg/dL (7-17); Calcium 9.8 mg/dL (8.4-10.2); Carbon Dioxide 28 mmol/L (22-30); Chloride 105 mmol/L (98-107); Cholesterol 241 mg/dL (0-200); Estimated Glomerular Filt Rate > 60; Glucose 102 mg/dL (65-110); HDL Direct 39 mg/dL; Potassium 4.4 mmol/L (3.4-5.0); Sodium 140 mmol/L (137-145); Triglycerides 216 mg/dL (<150)
[2023-06-22 18:59] LABS: LDL Cholesterol Direct 148 mg/dL
[2023-06-22 19:41] LABS: Basophils Absolute Auto 0.1 K/mm3 (0.0-0.1); Eosinophils Absolute Auto 0.5 K/mm3 (0-0.3); Eosinophils Percent Auto 4.8 % (0-4.4); Hematocrit 42.9 % (37.0-47.0); Hemoglobin 13.9 g/dL (12.0-15.0); Immature Granulocyte Absolute 0.02 K/mm3 (0.00-0.031); Immature Granulocyte Percent A 0.2 % (0-0.5); Lymphocytes Absolute Auto 2.32 K/mm3 (0.9-3.2); Lymphocytes Percent Auto 24.3 % (18.3-44.2); Mean Corpuscular HGB Conc 32.4 g/dl (32-36); Mean Corpuscular Hemoglobin 29.4 pg (26-34); Mean Corpuscular Volume 90.7 fl (80-100); Monocytes Absolute Auto 0.6 K/mm3 (0.1-0.6); Monocytes Percent Auto 6.4 % (2.6-8.5); Neutrophils Percent Auto 63.3 % (45.5-73.1); Platelet Count Result 414 k/mm3 (150-375); Red Blood Count 4.73 M/mm3 (4.2-5.4); Red Cell Distribution Width 16.3 % (11.5-14.5); White Blood Count 9.5 K/mm3 (4.5-10.0)
== END 2023-06-22 09:16 | disposition home or self-care (01) ==
PROVIDERS: PCP Family Medicine; Visit Provider Nurse Practitioner Family
DX: E78.5 Hyperlipidemia, unspecified (principal); I10 Essential (primary) hypertension
CPT/HCPCS: 36415; 80053; 80061; 85025

== ENCOUNTER 2023-09-08 14:21 | Outpatient (CLI) | payer MEDICARE, SELFPAY ==
[2023-09-08 14:32] LABS: Basophils Absolute Auto 0.1 K/mm3 (0.0-0.1); Basophils Percent Auto 0.9 % (0.2-1.2); Eosinophils Absolute Auto 0.2 K/mm3 (0-0.3); Eosinophils Percent Auto 1.8 % (0-4.4); Hematocrit 43.9 % (37.0-47.0); Hemoglobin 14.8 g/dL (12.0-15.0); Immature Granulocyte Absolute 0.02 K/mm3 (0.00-0.031); Immature Granulocyte Percent A 0.2 % (0-0.5); Lymphocytes Absolute Auto 2.07 K/mm3 (0.9-3.2); Lymphocytes Percent Auto 22.2 % (18.3-44.2); Mean Corpuscular HGB Conc 33.7 g/dl (32-36); Mean Corpuscular Hemoglobin 29.5 pg (26-34); Mean Corpuscular Volume 87.5 fl (80-100); Mean Platelet Volume 8.3 fl (7.4-10.4); Monocytes Absolute Auto 0.7 K/mm3 (0.1-0.6); Monocytes Percent Auto 7.4 % (2.6-8.5); Neutrophils Absolute Auto 6.3 K/mm3 (1.3-6.7); Neutrophils Percent Auto 67.5 % (45.5-73.1); Platelet Count Result 400 k/mm3 (150-375); Red Blood Count 5.02 M/mm3 (4.2-5.4); Red Cell Distribution Width 15.8 % (11.5-14.5); White Blood Count 9.3 K/mm3 (4.5-10.0)
[2023-09-08 16:30] LABS: Alanine Aminotransferase 22 U/L (6-35); Albumin Level 4.7 g/dL (3.5-5.1); Alkaline Phosphatase 74 U/L (38-126); Anion Gap 11 mmol/L (8-16); Aspartate Amino Transferase 23 U/L (14-36); Bilirubin,Total 0.4 mg/dL (0.2-1.3); Blood Urea Nitrogen 16 mg/dL (7-17); Calcium 10.3 mg/dL (8.4-10.2); Carbon Dioxide 25 mmol/L (22-30); Chloride 102 mmol/L (98-107); Estimated Glomerular Filt Rate > 60; Glucose 104 mg/dL (65-110); Potassium 3.9 mmol/L (3.4-5.0); Sodium 138 mmol/L (137-145)
[2023-09-08 16:50] LABS: Iron 80 ug/dL (37-170)
[2023-09-08 17:02] LABS: Percent Iron Saturation 25 % (20-50)
== END 2023-09-08 14:22 | disposition home or self-care (01) ==
LOC: ANHLAB 14:22
PROVIDERS: Student in an Organized Health Care Education/Training Program; PCP Family Medicine; Visit Provider Internal Medicine Hematology & Oncology
DX: N95.0 Postmenopausal bleeding (principal)
CPT/HCPCS: 36415; 80053; 82728; 83540; 83550; 85025

== ENCOUNTER 2024-06-12 12:05 | Outpatient (CLI) | payer MEDICARE, SELFPAY ==
--- NOTE | ~2024-06-12 | MM_ITS ---
EXAMINATION: MM screening ethel LT w fantasma HISTORY: Screening TECHNIQUE: Craniocaudal and mediolateral oblique 3-D tomosynthesis images were obtained and synthetic 2-D images were generated. CAD analysis was submitted and interpreted. COMPARISON: Comparison to multiple prior studies sequentially, with oldest reviewed study dated 09/30. BREAST PARENCHYMAL COMPOSITION: Not dense: There are scattered areas of fibroglandular density. FINDINGS: There are developing nodular asymmetries anteriorly in the left breast involving the lower inner quadrant and periareolar locations. IMPRESSION: 1. Developing left breast asymmetries. 2. Additional mammographic views and possible breast ultrasound are recommended. BI-RADS Category 0: Incomplete: Needs additional imaging evaluation. Reviewed, dictated and finalized at location B. IMPRESSION: 1. Developing left breast asymmetries. 2. Additional mammographic views and possible breast ultrasound are recommended . BI-RADS Category 0: Incomplete: Needs additional imaging evaluation.
== END 2024-06-12 12:06 | disposition home or self-care (01) ==
LOC: MICIMG 12:06
PROVIDERS: PCP Obstetrics & Gynecology Gynecologic Oncology; Visit Provider Family Medicine
DX: Z12.31 Encounter for screening mammogram for malignant neoplasm of breast (principal); R92.8 Other abnormal and inconclusive findings on diagnostic imaging of breast
CPT/HCPCS: 77063; 77067

== ENCOUNTER 2024-07-05 08:49 | Outpatient (CLI) | payer MEDICARE, SELFPAY ==
--- NOTE | ~2024-07-05 | MMUS_ITS ---
. EXAMINATION: MM diagnostic ethel LT w fantasma, US breast LT limited HISTORY: Follow-up small left breast masses TECHNIQUE: Additional 3-D tomosynthesis images of the left breast were performed and synthetic 2-D im ages were generated. CAD analysis was submitted and interpreted. High resolution Limited left breast ultrasound was performed. COMPARISON: Comparison to multiple prior studies sequentially, with oldest reviewed study dated 09/30. BREAST PARENCHYMAL COMPOSITION: Not dense: There are scattered areas of fibroglandular density. FINDINGS: MAMMOGRAPHIC FINDINGS: There are no suspicious masses, calcifications or architectural distortion in the left breast to sugg est malignancy. ULTRASOUND: Limited left breast ultrasound: At 10:00, 6 cm from the nipple there is a small intramammary lymph no de measuring 6 mm. At 3:00 near the areola there is a 4 mm cyst. No suspicious masses to suggest scott gnancy. IMPRESSION: 1. No evidence for malignancy in the left breast. 2. Routine yearly screening mammogram and regular clinical breast examination are recommended. BI-RADS Category 2: Benign finding(s). Reviewed, dictated and finalized at location B. IMPRESSION: 1. No evidence for malignancy in the left breast. 2. Routine yearly screening mammogram and regular clinical breast examination a re recommended. BI-RADS Category 2: Benign finding(s).
== END 2024-07-05 08:50 | disposition home or self-care (01) ==
LOC: MICIMG 08:50
PROVIDERS: PCP Family Medicine; Visit Provider Family Medicine
DX: R92.8 Other abnormal and inconclusive findings on diagnostic imaging of breast (principal)
CPT/HCPCS: 76642; 77061; 77065; G0279